=== PATIENT | male | born 1985 | race Caucasian/White ===

== ENCOUNTER 2017-12-06 12:11 | Emergency (ER) | payer SELFPAY ==
[~2017-12-06] VITALS: Ht 180.3 cm; Wt 63.6 kg
[2017-12-06 12:13] VITALS: BP 148/96
== END 2017-12-06 14:05 | disposition home or self-care (01) ==
LOC: ED 13:21
DX: M79.641 Pain in right hand (principal)
CPT/HCPCS: 99284